=== PATIENT | female | born 1990 | race Caucasian/White ===

== ENCOUNTER 2021-03-07 16:27 | Inpatient (IN) | payer OTHER ==
[~2021-03-07] VITALS: Ht 165.1 cm; Wt 136.1 kg
[2021-03-07] MEDS ORDERED: PRENATAL MULTI1 EAC4 PO (17:49)
[2021-03-09 06:26] LABS: HEMOGLOBIN 10.3 gm/dl (12.3-15.3)
[2021-03-09] MEDS ORDERED: HYDROCODONE-AC1 EAC1 PO (11:35)
[2021-03-09] MEDS ORDERED: DOCUSATE SODIU100 MG PO (11:35)
[2021-03-09] MEDS ORDERED: IBUPROFEN800 MG PO (11:35)
== END 2021-03-09 12:30 | disposition home or self-care (01) | DRG 788 ==
LOC: GENOP 16:27 → OB 18:11
PROVIDERS: ADMIT Obstetrics & Gynecology
PROC: 0U7C7ZZ Dilation of Cervix, Via Natural or Artificial Opening (ICD-10-PCS; 2021-03-07)
PROC: 10D00Z1 Extraction of Products of Conception, Low, Open Approach (ICD-10-PCS; principal; 2021-03-08 10:12)
DX: O13.4 Gestational [pregnancy-induced] hypertension without significant proteinuria, complicating childbirth (principal); O99.214 Obesity complicating childbirth; Z20.822 Contact with and (suspected) exposure to COVID-19; E66.9 Obesity, unspecified; O36.63X0 Maternal care for excessive fetal growth, third trimester, not applicable or unspecified; Z3A.38 38 weeks gestation of pregnancy; Z37.0 Single live birth
CPT/HCPCS: 36415; 81001; 82800; 85014; 85018; 85461; 86850; 86900; 86901; 90715; C9113; J0690; J1170; J1650; J1885; J1940; J2274; J2405; J2550; J2590; J2790; J3010; J7120; U0002